=== PATIENT | male | born 1985 | race Caucasian/White ===

== ENCOUNTER 2018-08-16 17:17 | Emergency (ER) | payer BC, MEDICAID ==
[2018-08-16 17:46] VITALS: BP 134/77
[2018-08-16] MEDS ORDERED: Albuterol/Ipratropium 3.0-0.5 MG/3 ML Neb Soln NEB ONE (18:00)
[2018-08-16] MEDS ORDERED: predniSONE 20 MG Tab PO ONE (18:00)
--- NOTE | 2018-08-16 18:08 | EDM.PDOC ---
ED HPI GENERAL MEDICAL PROBLEM - General Chief Complaint: Respiratory Problem Stated Complaint: SHORTNESS OF BREATH Time Seen by Provider: 08/16/18 17:57 Source of Information: Reports: Patient History Limitations: Reports: No Limitations - History of Present Illness INITIAL COMMENTS - FREE TEXT/NARRATIVE: Patient is a 33-year-old gentleman who presents to the emergency department this afternoon with a complaint of cough and shortness of breath. Patient states that this is been on on for approximately 1 week, he does have a history of asthma, and is been taking home nebulizer treatments along with metered-dose inhaler. Symptoms have not resolved and have become worse. Patient denies fever, suspected contact with sick individuals, nausea, vomiting, diarrhea, or out of country travel. Onset: Gradual Duration: Day(s): Location: Reports: Chest Quality: Reports: Ache Severity: Mild Improves with: Reports: None Worsens with: Reports: Breathing Associated Symptoms: Reports: Cough, cough w sputum, Shortness of Breath. Denies: Chest Pain, Fever/Chills, Nausea/Vomiting Treatments SPORT INTERNSHIP: Reports: Home Treatments - Related Data Allergies Allergy/AdvReac Type Severity Reaction Status Date / Time amoxicillin Allergy Rash Verified 08/16/18 17:47 Home Meds: Home Meds Albuterol [Proventil HFA] 2 puff INH Q4H PRN 07/16/13 [History] Triamcinolone Acetonide [Triamcinolone Acetonide 0.1% Crm] 15 gm TOP BID PRN [History] Albuterol [Proventil HFA] 2 puff INH Q4H #1 inhaler 08/16/18 [Rx] Albuterol/Ipratropium [DuoNeb 3.0-0.5 MG/3 ML] 3 ml .XX QID #30 neb 08/16/18 [Rx ] Azithromycin [Zithromax] 500 mg PO DAILY #4 tab 08/16/18 [Rx] predniSONE [Prednisone] 20 mg PO DAILY #3 tablet 08/16/18 [Rx] Past Medical History HEENT History: Reports: None Cardiovascular History: Reports: None Respiratory History: Reports: Asthma Psychiatric History: Reports: None Dermatologic History: Reports: Other (See Below) Other Dermatologic History: hx dermatitis Social & Family History - Caffeine Use Caffeine Use: Reports: Soda, Tea ED ROS GENERAL - Review of Systems Review Of Systems: ROS reveals no pertinent complaints other than HPI. Constitutional: Reports: No Symptoms HEENT: Reports: No Symptoms Respiratory: Reports: Shortness of Breath, Cough, Sputum Cardiovascular: Reports: No Symptoms Endocrine: Reports: No Symptoms GI/Abdominal: Reports: No Symptoms : Reports: No Symptoms Musculoskeletal: Reports: No Symptoms Skin: Reports: No Symptoms Neurological: Reports: No Symptoms Psychiatric: Reports: No Symptoms Hematologic/Lymphatic: Reports: No Symptoms Immunologic: Reports: No Symptoms ED EXAM, GENERAL - Physical Exam Exam: See Below Exam Limited By: No Limitations General Appearance: Alert, WD/WN, No Apparent Distress Eye Exam: Bilateral Eye: Normal Inspection Nose: Normal Inspection, Normal Mucosa, No Blood Throat/Mouth: Normal Inspection, Normal Oropharynx, No Airway Compromise Head: Atraumatic, Normocephalic Neck: Normal Inspection, Supple, Non-Tender Respiratory/Chest: No Respiratory Distress, Wheezing (Mild end expiratory) Cardiovascular: Regular Rate, Rhythm, No Murmur GI/Abdominal: Normal Bowel Sounds, Soft, Non-Tender Neurological: Alert, Oriented, Normal Cognition Psychiatric: Normal Affect, Normal Mood Skin Exam: Warm, Dry, Intact, Normal Color, No Rash Lymphatic: No Adenopathy Course - Vital Signs Last Recorded V/S: Last Vital Signs Temp 98.2 F 08/16/18 17:30 Pulse 70 08/16/18 17:30 Resp 20 08/16/18 17:30 BP 134/77 08/16/18 17:30 Pulse Ox 94 L 08/16/18 17:30 - Orders/Labs/Meds Orders: Active Orders 24 hr Category Date Time Status CXR [Chest 2V] [CR] Stat Exams 08/16/18 17:46 Ordered INFLUENZA A+B AG SCREEN [RM] Stat Lab 08/16/18 17:46 Ordered - Radiology Interpretation Free Text/Narrative:: Chest x-ray shows no acute cardiopulmonary process - Re-Assessments/Exams Free Text/Narrative Re-Assessment/Exam: 08/16/18 18:30 Patient afebrile, appears nontoxic and feels much better, bilateral breath sounds are clear, sat 96%, patient given 30 mg Zithromax, 40 mg of prednisone and a DuoNeb in the ER. Influenza is negative. Departure - Departure Time of Disposition: 18:31 Disposition: Home, Self-Care 01 Condition: Good Clinical Impression: Exacerbation of asthma Qualifiers: Asthma severity: mild Asthma persistence: persistent Qualified Code(s): J45.31 - Mild persistent asthma with (acute) exacerbation Asthmatic bronchitis with acute exacerbation Qualifiers: Asthma severity: mild Asthma persistence: intermittent Qualified Code(s): J45.21 - Mild intermittent asthma with (acute) exacerbation - Discharge Information Instructions: Acute Bronchitis, Adult, [id number], How to Use a Nebulizer, Adult, Asthma, Adult, [id number], Metered Dose Inhaler (No Spacer Used) Referrals: Anthony Bello PA-C [Primary Care Provider] - Additional Instructions: Up at [facility] in 2 days. Return to emergency department sooner symptoms continue or worsen. Take medication as directed. - My Orders Last 24 Hours: My Active Orders 08/16/18 17:46 CXR [Chest 2V] [CR] Stat INFLUENZA A+B AG SCREEN [RM] Stat - Assessment/Plan Last 24 Hours: My Active Orders 08/16/18 17:46 CXR [Chest 2V] [CR] Stat INFLUENZA A+B AG SCREEN [RM] Stat Assessment:: Asthmatic bronchitis Plan: Follow-up with PCP in 2 days
--- NOTE | 2018-08-16 18:12 | CR ---
[id number] RAD/RAD Chest PA And Lateral EXAM: RAD Chest PA And Lateral CLINICAL DATA: COUGH. SHORTNESS OF BREATH COMPARISON: CORRELATION IS MADE WITH THE EXAM OF JULY 06, 2012. FINDINGS: The lungs are clear. The cardiomediastinal contour is normal. The regional bones and soft tissues are unremarkable. IMPRESSION: NO ACUTE PROCESS. Jose Valles MD 08/16/18 [id number] Thank you for allowing us to participate in the care of your patient.
[2018-08-16] MEDS ORDERED: Azithromycin 250 MG Tab PO ONE (18:26)
== END 2018-08-16 18:40 | disposition home or self-care (01) ==
LOC: KA.ED 17:17
DX: J45.31 Mild persistent asthma with (acute) exacerbation (principal); J45.909 Unspecified asthma, uncomplicated; F17.210 Nicotine dependence, cigarettes, uncomplicated; Z79.899 Other long term (current) drug therapy; Z88.1 Allergy status to other antibiotic agents
CPT/HCPCS: 71046; 87804; 94640; 99285; A9270; J7620-GY

== ENCOUNTER 2019-08-17 13:45 | Observation (INO) | payer BC, MEDICAID ==
[2019-08-17 14:34] LABS: ANION GAP 13.8 mmol/L (5-15); CHLORIDE,CL 98 mmol/L (98-115); SODIUM,NA 136 mmol/L (136-145)
[2019-08-17] MEDS ORDERED: Alum Hydrox/Mag Hydrox/Simeth 30 ML, Lidocaine 2% 15 ML PO ONE ×4 (16:32→17:00)
[2019-08-17] MEDS ORDERED: Sodium Chloride 0.9% 10 ML Syringe FLUSH PRN (20:00)
[2019-08-17] MEDS ORDERED: Formoterol/Mometasone 200-5 MCG 8.8 GM Inhaler IH SCH (21:00)
[2019-08-17] MEDS: Formoterol/Mometasone 200-5 MCG 8.8 GM Inhaler**OWN MED IH SCH (21:36)
[2019-08-17] MEDS: Sodium Chloride 0.9% 10 ML Syringe FLUSH SCH (21:38)
[2019-08-18] MEDS ORDERED: EPINEPHrine 1:10,000 1 MG/10 ML Syringe IVPUSH PRN (02:32)
[2019-08-18] MEDS ORDERED: Atropine 0.1 MG/ML 10 ML Syringe IVPUSH PRN (02:32)
[2019-08-18] MEDS ORDERED: Lidocaine 2% 100 MG/5 ML Syringe IVPUSH PRN (02:32)
[2019-08-18] MEDS ORDERED: Nitroglycerin 0.4 MG Tab.SL SL PRN (02:32)
[2019-08-18] MEDS ORDERED: Acetaminophen 325 MG Tab PO PRN (03:02)
[2019-08-18] MEDS: Sodium Chloride 0.9% 10 ML Syringe FLUSH SCH (09:12)
[2019-08-18] MEDS: Formoterol/Mometasone 200-5 MCG 8.8 GM Inhaler**OWN MED IH SCH (09:12)
--- NOTE | 2019-08-18 11:11 | PCM.DCSUM1 ---
Discharge Summary - Hospital Course Diagnosis: Stroke: No - Discharge Data Discharge Date: 08/18/19 Discharge Disposition: Home, Self-Care 01 Condition: Good - Referral to Home Health Primary Care Physician: Anthony Bello PA-C - Patient Instructions Diet: No Alcoholic Beverages Diet, Other: avoid irritating foods as discussed, Activity: As Tolerated Driving: May Drive Today Showering/Bathing: May Shower Notify Provider of: Increased Pain Other/Special Instructions: Limit alcohol, try to quit smoking,. Take your meds as directed. Take your new medication Singulair for Asthma May-October as discussed. We discussed life style modification that you can do to reduce your risk of heart problems such as quitting smoking, exercise, weight loss. - Discharge Plan *PRESCRIPTION DRUG MONITORING PROGRAM REVIEWED*: Not Applicable *COPY OF PRESCRIPTION DRUG MONITORING REPORT IN PATIENT JUAN MIGUEL: Not Applicable Prescriptions/Med Rec: Montelukast Sodium [Singulair] 10 mg PO DAILY #90 tablet Omeprazole 20 mg PO ACBREAKFAST #45 cap.sr Home Medications: Home Meds Triamcinolone Acetonide [Triamcinolone Acetonide 0.1% Crm] 15 gm TOP BID PRN [History] Albuterol [Proventil HFA] 2 puff INH Q4H #1 inhaler 08/16/18 [Rx] Albuterol/Ipratropium [DuoNeb 3.0-0.5 MG/3 ML] 3 ml INH Q6H PRN 08/17/19 [ History] Mometasone/Formoterol [Dulera 200-5 MCG] 2 puff PO BID 08/17/19 [History] Montelukast Sodium [Singulair] 10 mg PO DAILY #90 tablet 08/18/19 [Rx] Omeprazole 20 mg PO ACBREAKFAST #45 cap.sr 08/18/19 [Rx] Forms: Return to Work/Inpatient [facility]ON Referrals: Annabel Gonzales NP [Nurse Practitioner] - (or with anybody of his choice, early next week. ) - Discharge Summary/Plan Comment DC Time >30 min.: Yes Discharge Summary/Plan Comment: final diagnosis Acid reflux, with associated Gastritis EtOH abuse Tobacco dependency history summary Evan is a 34 year old male who Was admitted into overnight observatory status due to chest pain and rule out SC. He was seen by Annabel Gonzales NP from [facility] with sx suggestive of acid reflux with subjective heartburn with associated RUQ and LUQ abdominal discomfort. He took 6-8 TUMS with no improvement and notes TUMS is usually effective for him. Yesterday he denoted new sx of mid-sternal chest pain, without alarming SOB, diaphoresis, or nausea or radiating pains. Pertinent History Pain reproducible upon cough Smoker, light No cardiac hx, Ethoh: ~ 4-5 beers nightly and 2 mix drinks with whiskey, well over exceeding male limits. Last lipid panel in 2018: Cholesterol 223, Triglycerides-166, HDL-61, LDL-129. Gf: heart disease/ unknown age, Maternal uncle early heart disease/SC prehospital and hospital course -Chest x-ray done in clinic and normal. Lungs are clear, heart size normal. EKG in clinic: NSR 72. ST elevation in V2 and V3 (~1.5mm) though no significant reciprocal changes noted or other t-wave abnormality. Patient given SL Nitroglycerin in clinic with mild improvement in chest pain though no complete resolution of pain. ASA 324mg given in clinic. CBC, CMP, Magnesium all WNL, troponins trended all normal. Admitted provider consulted with Cardiogist, Dr. Sims who reviewed EKG and concurs with findings. Given continued chest pain and risk factors, Dr. Sims recommends repeat EKG now and repeat troponin in 4 hours. If negative troponin at follow-up ST elevation likely secondary to early repolarization and acute cardiac unlikely. repeat EKG in the hospital in equivocal Patient was also evaluated the day prior with c/o left side pain which started ~ 3-5 days prior. Patient denied any symptoms of fever, chills, nausea, vomiting, or diarrhea. he did note concerns of constipation. Assessment unremarkable in clinic with no abdominal pain elicited with palpation and normal bowel sounds. Abdomen notably rounded which patient states is normal. CBC, CMP, Lipase, and urinalysis all unremarkable. Abdominal x-ray obtained with nonobstructive bowel gas patterns. No air fluid levels or dilated loops of bowel. medication changes/adustments upon discharge Omeprazole, 20 mg by mouth daily 45 days (newly added) Singulair, 10 mg by May through October (newly added) patient education --Limit alcohol, --Smoking cessation --Wt reduction --Exercise --Take your meds as directed --Take your new medication Singulair for Asthma May-October as discussed. --Life style modification that you can do to reduce your risk of heart problems such as quitting smoking, exercise, weight loss. considerations at f/u --recommend avoiding stress testing due to risk of false positive with low risk patient with all indications of pretest probability of CAD negative --Could consider baseline ECHO to assess for cardiac myopathy since LVH on EKG. --ETOH counseling, jwell exceeding limits. - General Info Date of Service: 08/18/19 Functional Status: Reports: Pain Controlled, Tolerating Diet, Ambulating, Urinating. Denies: New Symptoms - Review of Systems General: Reports: No Symptoms HEENT: Reports: No Symptoms Pulmonary: Reports: No Symptoms Cardiovascular: Reports: Other (mode to grade epigastric type pain reproducible on cough) Gastrointestinal: Denies: Abdominal Pain, Diarrhea, Nausea Genitourinary: Reports: No Symptoms Musculoskeletal: Reports: Other (epigastric type pain) Skin: Reports: No Symptoms Neurological: Reports: No Symptoms - Patient Data Vitals - Most Recent: Last Vital Signs Temp 97.4 F 08/18/19 06:52 Pulse 75 08/18/19 06:52 Resp 16 08/18/19 06:52 BP 107/64 08/18/19 06:52 Pulse Ox 96 08/18/19 06:52 Weight - Most Recent: 179 lb 14.4 oz I&O - Last 24 hours: Intake & Output 08/17/19 08/18/19 08/18/19 22:59 06:59 14:59 Intake Total 300 0 Output Total 0 Balance 300 0 Lab Results - Last 24 hrs: Laboratory Results - last 24 hr 08/17/19 08/17/19 08/17/19 Range/Units 13:55 13:55 19:00 WBC 6.86 (5.00-10.00) 10^3/uL RBC 5.26 (4.50-6.00) 10^6/uL Hgb 16.2 (13.0-17.0) g/dL Hct 46.8 (40.0-52.0) % MCV 89.0 (82.0-92.0) fL MCH 30.8 (27.0-31.0) pg MCHC 34.6 (32.0-36.0) g/dL RDW 12.0 (11.5-14.5) % Plt Count 227 (150-400) 10^3/uL MPV 9.2 (7.4-10.4) fL Immature Gran % (Auto) 0.3 (0.0-5.0) % Neut % (Auto) 61.6 (50.0-70.0) % Lymph % (Auto) 24.8 (20.0-40.0) % [place] % (Auto) 9.0 H (2.0-8.0) % Eos % (Auto) 4.2 H (1.0-3.0) % Baso % (Auto) 0.1 (0.0-1.0) % Immature Gran # (Auto) 0.02 (0.00-0.50) 10^3/uL Neut # (Auto) 4.22 (2.50-7.00) 10^3/uL Lymph # (Auto) 1.70 (1.00-4.00) 10^3/uL [place] # (Auto) 0.62 (0.10-0.80) 10^3/uL Eos # (Auto) 0.29 (0.10-0.30) 10^3/uL Baso # (Auto) 0.01 (0.00-0.10) 10^3/uL Sodium 136 D (136-145) mmol/L Potassium 4.1 (3.3-5.3) mmol/L Chloride 98 (98-115) mmol/L Carbon Dioxide 28.3 (21.0-32.0) mmol/L Anion Gap 13.8 (5-15) mmol/L BUN 13 (6-25) mg/dL Creatinine 0.87 (0.51-1.17) mg/dL Est Cr Clr Drug Dosing TNP Estimated GFR (MDRD) > 60 mL/min Glucose 99 (75 - 99) mg/dL Calcium 9.3 (8.7-10.3) mg/dL Magnesium 1.8 (1.8-2.4) mg/dL Total Bilirubin 0.7 (0.2-1.0) mg/dL AST 33 (15-37) U/L ALT 61 (12-78) U/L Alkaline Phosphatase 76 (46-116) IU/L Troponin I < 0.04 < 0.04 (0.00-0.070) ng/mL Total Protein 7.4 (6.4-8.2) g/dL Albumin 4.04 (3.00-4.80) g/dL 08/18/19 Range/Units 07:04 WBC (5.00-10.00) 10^3/uL RBC (4.50-6.00) 10^6/uL Hgb (13.0-17.0) g/dL Hct (40.0-52.0) % MCV (82.0-92.0) fL MCH (27.0-31.0) pg MCHC (32.0-36.0) g/dL RDW (11.5-14.5) % Plt Count (150-400) 10^3/uL MPV (7.4-10.4) fL Immature Gran % (Auto) (0.0-5.0) % Neut % (Auto) (50.0-70.0) % Lymph % (Auto) (20.0-40.0) % [place] % (Auto) (2.0-8.0) % Eos % (Auto) (1.0-3.0) % Baso % (Auto) (0.0-1.0) % Immature Gran # (Auto) (0.00-0.50) 10^3/uL Neut # (Auto) (2.50-7.00) 10^3/uL Lymph # (Auto) (1.00-4.00) 10^3/uL [place] # (Auto) (0.10-0.80) 10^3/uL Eos # (Auto) (0.10-0.30) 10^3/uL Baso # (Auto) (0.00-0.10) 10^3/uL Sodium (136-145) mmol/L Potassium (3.3-5.3) mmol/L Chloride (98-115) mmol/L Carbon Dioxide (21.0-32.0) mmol/L Anion Gap (5-15) mmol/L BUN (6-25) mg/dL Creatinine (0.51-1.17) mg/dL Est Cr Clr Drug Dosing Estimated GFR (MDRD) mL/min Glucose (75 - 99) mg/dL Calcium (8.7-10.3) mg/dL Magnesium (1.8-2.4) mg/dL Total Bilirubin (0.2-1.0) mg/dL AST (15-37) U/L ALT (12-78) U/L Alkaline Phosphatase (46-116) IU/L Troponin I < 0.04 (0.00-0.070) ng/mL Total Protein (6.4-8.2) g/dL Albumin (3.00-4.80) g/dL Med Orders - Current: Current Medications Acetaminophen (Tylenol) 650 mg PO Q4H PRN PRN Reason: Pain Last Admin: 08/18/19 03:13 Dose: 650 mg Atropine Sulfate (Atropine 0.1 Mg/Ml) 0 mg IVPUSH ASDIRECTED PRN PRN Reason: Heart Epinephrine HCl (Epinephrine 1:10,000) 1 mg IVPUSH ASDIRECTED PRN PRN Reason: Heart Lidocaine HCl (Xylocaine 2%) 0 mg IVPUSH ASDIRECTED PRN PRN Reason: Heart Mometasone Furoate/Formoterol Fumar (Dulera 200-5 Mcg) 2 puff IH BID [facility] Last Admin: 08/18/19 09:12 Dose: 2 puff Nitroglycerin (Nitrostat) 0.4 mg SL ASDIRECTED PRN PRN Reason: Heart Sodium Chloride (Saline Flush) 10 ml FLUSH Q8HR [facility] Last Admin: 08/18/19 09:12 Dose: 10 ml Sodium Chloride (Saline Flush) 10 ml FLUSH Q8HR PRN PRN Reason: keep vein open Discontinued Medications Al Hydroxide/Mg Hydroxide 30 (ml/ Lidocaine HCl 15 ml) 0 ml PO ONETIME ONE Stop: 08/17/19 16:33 Last Admin: 08/17/19 17:07 Dose: 45 ml Al Hydroxide/Mg Hydroxide 30 (ml/ Lidocaine HCl 15 ml) 0 ml PO ONETIME ONE Stop: 08/17/19 17:01 Last Admin: 08/17/19 17:11 Dose: Not Given Mometasone Furoate/Formoterol Fumar (Dulera 200-5 Mcg) 2 puff IH BID MEHNAZ - Exam Quality Assessment: Denies: Supplemental Oxygen General: Reports: Alert, Oriented, Cooperative Neck: Reports: Supple Lungs: Reports: Clear to Auscultation, Normal Respiratory Effort Cardiovascular: Reports: Regular Rate, Regular Rhythm, Other (reproducible substernal epigastric pain. ). Denies: Irregular Rhythm, Bradycardia, Tachycardia, Murmurs GI/Abdominal Exam: Soft Extremities: No Pedal Edema Psy/Mental Status: Reports: Alert, Normal Affect, Normal Mood
[2019-08-18 12:12] VITALS: BP 119/79; PULSE 73
== END 2019-08-18 12:20 | disposition home or self-care (01) ==
LOC: KA.LAB 13:45 → KA.MS 15:20
PROVIDERS: ADMIT Nurse Practitioner Family; ATTEND Family Medicine
DX: K21.9 Gastro-esophageal reflux disease without esophagitis (principal); K29.70 Gastritis, unspecified, without bleeding; F10.19 Alcohol abuse with unspecified alcohol-induced disorder; F17.210 Nicotine dependence, cigarettes, uncomplicated; L30.0 Nummular dermatitis; J45.30 Mild persistent asthma, uncomplicated; E66.3 Overweight; Z88.0 Allergy status to penicillin; Z79.51 Long term (current) use of inhaled steroids; Z68.29 Body mass index [BMI] 29.0-29.9, adult
CPT/HCPCS: 36415; 80053; 83735; 84484; 85025; 93005; A9270-GY; G0378; G0379

== ENCOUNTER 2020-12-07 11:50 | Emergency (ER) | payer BC, MEDICAID ==
--- NOTE | 2020-12-07 12:03 | EDM.PDOC ---
ED HPI GENERAL MEDICAL PROBLEM - General Chief Complaint: General Stated Complaint: LEFT SIDE RIB PAIN Time Seen by Provider: 12/07/20 12:02 Source of Information: Reports: Patient History Limitations: Reports: No Limitations - History of Present Illness INITIAL COMMENTS - FREE TEXT/NARRATIVE: 35 YO WM PRESENTS TO ER COMPLAINING OF LEFT ANTERIOR RIB PAIN AFTER INJURY LAST NIGHT. PT REPORTS HE WAS WRESTLING WITH HIS DAUGHTER AND SHE ACCIDENTALLY KNEED HIM IN THE RIBS AND HE STATES HE HEARD A "POP". PT DENIES SHORTNESS OF BREATH. PT STATES HE DOESN'T HAVE PAIN UNLESS HE MOVES OR COUGHS. PT DENIES FEVER/CHILLS, NO CONGESTION OR RECENT ILLNESSES. PT DENIES DIAPHORESIS, DIZZINESS, NAUSEA/VOMITING OR RADIATING PAIN. Onset Date: 12/06/20 Duration: Day(s): (1) Location: Reports: Chest Quality: Reports: Ache Severity: Moderate Improves with: Reports: Rest Worsens with: Reports: Movement Associated Symptoms: Reports: No Other Symptoms Left Thoracic Pain Score (Numeric/FACES): 6 - Related Data Allergies Allergy/AdvReac Type Severity Reaction Status Date / Time amoxicillin Allergy Rash Verified 12/07/20 12:43 Home Meds: Home Meds Triamcinolone Acetonide [Triamcinolone Acetonide 0.1% Crm] 15 gm TOP BID PRN 12/09/15 [History] Albuterol [Proventil HFA] 2 puff INH Q4H #1 inhaler 08/16/18 [Rx] Albuterol/Ipratropium [DuoNeb 3.0-0.5 MG/3 ML] 3 ml INH Q6H PRN 08/17/19 [History] Mometasone/Formoterol [Dulera 200-5 MCG] 2 puff PO BID 08/17/19 [History] Montelukast Sodium [Singulair] 10 mg PO DAILY #90 tablet 08/18/19 [Rx] Omeprazole 20 mg PO ACBREAKFAST #45 cap.sr 08/18/19 [Rx] Past Medical History HEENT History: Reports: None Cardiovascular History: Reports: None Respiratory History: Reports: Asthma Gastrointestinal History: Reports: None Genitourinary History: Reports: None Musculoskeletal History: Reports: Back Pain, Chronic Neurological History: Reports: None Psychiatric History: Reports: None Endocrine/Metabolic History: Reports: None Hematologic History: Reports: None Immunologic History: Reports: None Oncologic (Cancer) History: Reports: None Dermatologic History: Reports: Other (See Below) Other Dermatologic History: hx dermatitis - Infectious Disease History Infectious Disease History: Reports: None - Past Surgical History Head Surgeries/Procedures: Reports: None GI Surgical History: Reports: None Male Surgical History: Reports: None Musculoskeletal Surgical History: Reports: None Social & Family History - Caffeine Use Caffeine Use: Reports: Soda ED ROS GENERAL - Review of Systems Review Of Systems: See Below Constitutional: Reports: No Symptoms HEENT: Reports: No Symptoms Respiratory: Denies: Shortness of Breath Cardiovascular: Reports: Chest Pain. Denies: Blood Pressure Problem, Dyspnea on Exertion, Lightheadedness, Orthopnea, Palpitations, Syncope Endocrine: Reports: No Symptoms GI/Abdominal: Reports: No Symptoms : Reports: No Symptoms Musculoskeletal: Reports: Other (ANTERIOR LOWER CHEST PAIN) Skin: Reports: No Symptoms Neurological: Reports: No Symptoms Psychiatric: Reports: No Symptoms Hematologic/Lymphatic: Reports: No Symptoms Immunologic: Reports: No Symptoms ED EXAM, GENERAL - Physical Exam Exam: See Below Exam Limited By: No Limitations General Appearance: Alert, WD/WN, No Apparent Distress Nose: Normal Inspection, Normal Mucosa, No Blood Throat/Mouth: Normal Inspection, Normal Lips, Normal Teeth, Normal Gums, Normal Oropharynx, Normal Voice, No Airway Compromise Head: Atraumatic, Normocephalic Neck: Normal Inspection, Supple, Non-Tender, Full Range of Motion Respiratory/Chest: No Respiratory Distress, Lungs Clear, Normal Breath Sounds, No Accessory Muscle Use, Chest Non-Tender Cardiovascular: Normal Peripheral Pulses, Regular Rate, Rhythm, No Edema, No Gallop, No JVD, No Murmur, No Rub GI/Abdominal: Normal Bowel Sounds, Soft, Non-Tender, No Organomegaly, No Distention, No Abnormal Bruit, No Mass Back Exam: Normal Inspection, Full Range of Motion, NT Extremities: Normal Inspection, Normal Range of Motion, Non-Tender, Normal Capillary Refill, No Pedal Edema Neurological: Alert, Oriented, CN II-XII Intact, Normal Cognition, Normal Gait, Normal Reflexes, No Motor/Sensory Deficits Psychiatric: Normal Affect, Normal Mood Skin Exam: Warm, Dry, Intact, Normal Color, No Rash Lymphatic: No Adenopathy Course - Vital Signs Last Recorded V/S: Last Vital Signs Temp 97.2 F 12/07/20 12:38 Pulse 75 12/07/20 12:38 Resp BP 119/66 12/07/20 12:38 Pulse Ox 98 12/07/20 12:38 - Orders/Labs/Meds Orders: Active Orders 24 hr Category Date Time Status Ribs 2V w Chest Lt [CR] Stat Exams 12/07/20 12:07 Ordered Meds: Medications Discontinued Medications Generic Name Dose Route Start Last Admin Trade Name Gilson PRN Reason Stop Dose Admin Ketorolac Tromethamine 60 mg 12/07/20 12:15 Ketorolac 60 Mg/2 Ml Sdv IM 12/07/20 12:16 ONETIME ONE Ketorolac Tromethamine Confirm 12/07/20 12:14 Ketorolac 60 Mg/2 Ml Sdv Administered 12/07/20 12:15 Dose 60 mg .ROUTE .STK-MED ONE - Radiology Interpretation Free Text/Narrative:: LEFT RIB SERIES- NO FX, NO PTX Departure - Departure Time of Disposition: 12:53 Disposition: Home, Self-Care 01 Condition: Good Clinical Impression: Contusion of rib on left side Qualifiers: Encounter type: initial encounter Qualified Code(s): S20.212A - Contusion of left front wall of thorax, initial encounter - Discharge Information Instructions: Rib Contusion Referrals: Annabel Gonzales CLINICAL AUDITOR [Primary Care Provider] - Forms: ED Department Discharge Additional Instructions: 1. DISCHARGE HOME 2. ULTRAM 50MG EVERY 4-6 HOURS NEEDED FOR PAIN 3. MOTRIN 600MG EVERY 6 HOURS X 5 DAYS 4. INCENTIVE SPIROMETRY- USE 10X/EVERY HOUR WHILE AWAKE 5. CONSIDER RIB BELT WHEN AMBULATING 6. ICE TO CHEST WALL 7. RETURN TO ER FOR WORSENING SYMPTOMS 8. FOLLOW UP WITH PCP FOR FURTHER TREATMENT NEEDED Sepsis Event Note (ED) - Focused Exam Vital Signs: Vital Signs Temp Pulse BP Pulse Ox 12/07/20 12:38 97.2 F 75 119/66 98 - My Orders Last 24 Hours: My Active Orders 12/07/20 12:07 Ribs 2V w Chest Lt [CR] Stat - Assessment/Plan Last 24 Hours: My Active Orders 12/07/20 12:07 Ribs 2V w Chest Lt [CR] Stat Assessment:: 1. LEFT SIDED RIB CONTUSION Plan: 1. DISCHARGE HOME 2. ULTRAM 50MG EVERY 4-6 HOURS NEEDED FOR PAIN 3. MOTRIN 600MG EVERY 6 HOURS X 5 DAYS 4. INCENTIVE SPIROMETRY- USE 10X/EVERY HOUR WHILE AWAKE 5. CONSIDER RIB BELT WHEN AMBULATING 6. ICE TO CHEST WALL 7. RETURN TO ER FOR WORSENING SYMPTOMS 8. FOLLOW UP WITH PCP FOR FURTHER TREATMENT NEEDED
[2020-12-07] MEDS: Ketorolac 60 MG/2 ML SDV IM ONE (12:30)
[2020-12-07 12:42] VITALS: BP 119/66; PULSE 75
[2020-12-07] MEDS: Ketorolac 60 MG/2 ML SDV ONE (12:51)
[2020-12-07] MEDS: traMADol 50 MG Tab PO ONE (13:15)
--- NOTE | 2020-12-07 14:11 | CR ---
[id number] RAD/RAD Ribs Left W PA Chest . Exam: RAD Ribs Left W PA Chest Clinical Data: CHEST PAIN COMPARISON: CORRELATION IS MADE WITH AUGUST 16, 2018 FINDINGS: No fracture is seen There is no pneumothorax The lungs are clear The cardiac silhouette is stable IMPRESSION: NEGATIVE EXAM Jose Valles MD 12/07/20 [id number] Thank you for allowing us to participate in the care of your patient.
== END 2020-12-07 13:00 | disposition home or self-care (01) ==
LOC: KA.ED 11:50
DX: S20.212A Contusion of left front wall of thorax, initial encounter (principal); J45.909 Unspecified asthma, uncomplicated; Z88.0 Allergy status to penicillin; Z79.899 Other long term (current) drug therapy; W50.0XXA Accidental hit or strike by another person, initial encounter; Y93.72 Activity, wrestling
CPT/HCPCS: 71101; 96372; 99283; J1885; A9270-GY

== ENCOUNTER 2021-06-01 11:43 | Emergency (ER) | payer BC, MEDICAID ==
[2021-06-01 11:58] VITALS: BP 114/78; PULSE 70
--- NOTE | 2021-06-01 12:05 | EDM.PDOC ---
ED HPI GENERAL MEDICAL PROBLEM - General Chief Complaint: General Stated Complaint: EAR PAIN Time Seen by Provider: 06/01/21 12:02 Source of Information: Reports: Patient History Limitations: Reports: No Limitations - History of Present Illness INITIAL COMMENTS - FREE TEXT/NARRATIVE: 35 YO WM PRESENTS TO ER COMPLAINING OF 4 DAY HISTORY OF RIGHT EAR PAIN. PT REPORTS NO RECENT URI SYMPTOMS. PT DENIES USE OF EAR PLUGS. PT STATES PAIN COMES AND GOES BUT HAS BECOME MORE FREQUENT RECENTLY. PT ALSO REPORTS HISTORY OF ALCOHOL USE/ABUSE AND GASTRITIS WHICH HE RECENTLY RECEIVED A PRESCRIPTION FOR PROTONIX WHEN LAST SEEN IN CLINIC. PT REPORTS HE DOESN'T THINK IT'S HELPING. PT DENIES NAUSEA/VOMITING, NO RECTAL BLEEDING. PT REPORTS PAIN COMES AND GOES AND IS BURING IN CHARACTER AND LOCATED EPIGASTRIC. PT REPORTS EATING AND DRINKING WELL. PT REPORTS HE IS COMFORTABLE FOLLOWING UP WITH PCP FOR FURTHER EVALUATION OUTPATIENT. PT INSTRUCTED TO RETURN TO ER IF ABDOMINAL PAIN GETS WORSE OR VOMITING, MELENA, RECTAL BLEEDING OCCUR. PT INSTRUCTED TO START PEPCID 20MG 2X/DAY AND SIMETHICONE 125MG NEEDED. Duration: Day(s): Location: Reports: Other (RIGHT EAR) Quality: Reports: Ache Severity: Mild Improves with: Reports: None Worsens with: Reports: None Associated Symptoms: Denies: Cough, Fever/Chills, Nausea/Vomiting, Shortness of Breath Abdominal Pain Score (Numeric/FACES): 5 Right Ear Pain Score (Numeric/FACES): 6 - Related Data Allergies Allergy/AdvReac Type Severity Reaction Status Date / Time amoxicillin Allergy Rash Verified 06/01/21 12:01 Home Meds: Home Meds Triamcinolone Acetonide [Triamcinolone Acetonide 0.1% Crm] 1 applic TOP BID PRN 12/09/15 [History] Mometasone/Formoterol [Dulera 200-5 MCG] 2 puff PO BID 08/17/19 [History] Albuterol [Proventil HFA] 2 puff INH Q4H PRN 06/01/21 [History] Omeprazole 20 mg PO DAILY 06/01/21 [History] predniSONE [Prednisone] 10 mg PO ASDIRECTED 06/01/21 [History] Past Medical History HEENT History: Reports: None Cardiovascular History: Reports: None Respiratory History: Reports: Asthma Gastrointestinal History: Reports: None Genitourinary History: Reports: None Musculoskeletal History: Reports: Back Pain, Chronic Neurological History: Reports: None Psychiatric History: Reports: None Endocrine/Metabolic History: Reports: None Hematologic History: Reports: None Immunologic History: Reports: None Oncologic (Cancer) History: Reports: None Dermatologic History: Reports: Other (See Below) Other Dermatologic History: hx dermatitis - Infectious Disease History Infectious Disease History: Reports: None - Past Surgical History Head Surgeries/Procedures: Reports: None GI Surgical History: Reports: None Male Surgical History: Reports: None Musculoskeletal Surgical History: Reports: None Social & Family History - Caffeine Use Caffeine Use: Reports: Coffee ED ROS GENERAL - Review of Systems Review Of Systems: See Below Constitutional: Reports: No Symptoms HEENT: Reports: Ear Pain Respiratory: Reports: No Symptoms Cardiovascular: Reports: No Symptoms Endocrine: Reports: No Symptoms GI/Abdominal: Reports: Abdominal Pain. Denies: Black Stool, Bloody Stool, Diarrhea, Decreased Appetite, Hematochezia, Melena, Nausea, Vomiting : Reports: No Symptoms Musculoskeletal: Reports: No Symptoms Skin: Reports: No Symptoms Neurological: Reports: No Symptoms Psychiatric: Reports: No Symptoms Hematologic/Lymphatic: Reports: No Symptoms Immunologic: Reports: No Symptoms ED EXAM, GENERAL - Physical Exam Exam: See Below Exam Limited By: No Limitations General Appearance: Alert, WD/WN, No Apparent Distress Ear Exam: Right Ear: Erythema, Left Ear: Canal Normal Head: Atraumatic, Normocephalic Neck: Normal Inspection, Supple, Non-Tender, Full Range of Motion Respiratory/Chest: No Respiratory Distress, Lungs Clear, Normal Breath Sounds, No Accessory Muscle Use, Chest Non-Tender Cardiovascular: Normal Peripheral Pulses, Regular Rate, Rhythm, No Edema, No Gallop, No JVD, No Murmur, No Rub GI/Abdominal: Normal Bowel Sounds, Soft, Non-Tender, No Organomegaly, No D istention, No Abnormal Bruit, No Mass. No: Tender Back Exam: Normal Inspection, Full Range of Motion, NT Extremities: Normal Inspection, Normal Range of Motion, Non-Tender, Normal Capillary Refill, No Pedal Edema Neurological: Alert, Oriented, CN II-XII Intact, Normal Cognition, Normal Gait, No Motor/Sensory Deficits Psychiatric: Normal Affect, Normal Mood Skin Exam: Warm, Dry, Intact, Normal Color, No Rash Course - Vital Signs Last Recorded V/S: Last Vital Signs Temp 98.1 F 06/01/21 11:53 Pulse 70 06/01/21 11:53 Resp 16 06/01/21 11:53 BP 114/78 06/01/21 11:53 Pulse Ox 98 06/01/21 11:53 Departure - Departure Time of Disposition: 12:31 Disposition: Home, Self-Care 01 Condition: Good Clinical Impression: Otitis externa Qualifiers: Chronicity: acute Laterality: right Gastritis Qualifiers: Gastritis type: alcoholic Chronicity: acute Gastritis bleeding: without bleeding Qualified Code(s): K29.20 - Alcoholic gastritis without bleeding - Discharge Information Instructions: Otitis Externa, Gastritis, Adult, [id number] Referrals: Kindra Mccord MD [Primary Care Provider] - Forms: ED Department Discharge, ED Return to Work/School Form Additional Instructions: 1. DISCHARGE HOME 2. CORTISPORIN OTIC- 3 DROPS TO RIGHT EAR WITH COTTON BALL 3X/DAY X 7 DAYS 3. CONTINUE HOME MEDICATIONS 4. CONSIDER PEPCID 20MG 2X/DAY AND SIMETHICONE 125MG NEEDED FOR ABDOMINAL PAIN 5. FOLLOW UP WITH PCP THIS WEEK FOR RECHECK AND FURTHER EVALUATION OF ABDOMINAL DISCOMFORT 6. RETURN TO ER FOR WORSENING SYMPTOMS 7. REFRAIN FROM ALCOHOL Sepsis Event Note (ED) - Evaluation Sepsis Screening Result: No Definite Risk - Focused Exam Vital Signs: Vital Signs Temp Pulse Resp BP Pulse Ox 06/01/21 11:53 98.1 F 70 16 114/78 98 - Assessment/Plan Assessment:: 1. RIGHT OTITIS EXTERNA 2. ALCOHOLIC GASTRITIS Plan: 1. DISCHARGE HOME 2. CORTISPORIN OTIC- 3 DROPS TO RIGHT EAR WITH COTTON BALL 3X/DAY X 7 DAYS 3. CONTINUE HOME MEDICATIONS 4. CONSIDER PEPCID 20MG 2X/DAY AND SIMETHICONE 125MG NEEDED FOR ABDOMINAL PAIN 5. FOLLOW UP WITH PCP THIS WEEK FOR RECHECK AND FURTHER EVALUATION OF ABDOMINAL DISCOMFORT 6. RETURN TO ER FOR WORSENING SYMPTOMS
[2021-06-01] MEDS: Hydrocortisone/Neomycin/Polymyxin B Otic Susp 10 ML Bottle EARRT ONE (12:46)
== END 2021-06-01 12:37 | disposition home or self-care (01) ==
LOC: KA.ED 11:43
DX: H60.91 Unspecified otitis externa, right ear (principal); K29.20 Alcoholic gastritis without bleeding; Z79.899 Other long term (current) drug therapy; Z88.0 Allergy status to penicillin
CPT/HCPCS: 99283; A9270-GY

== ENCOUNTER 2024-11-27 20:02 | Emergency (ER) | payer MEDICAID ==
[2024-11-27] MEDS ORDERED: Sodium Chloride 0.9% 10 ML Syringe FLUSH PRN (20:21)
[2024-11-27] MEDS: Ketorolac 30 MG/ML SDV IVPUSH ONE (20:25)
[2024-11-27 20:30] LABS: BASOPHILS ABSOLUTE AUTO 0.02 10^3/uL (0.00-0.10); BASOPHILS PERCENT AUTO 0.3 % (0.0-1.0); EOSINOPHILS ABSOLUTE AUTO 0.27 10^3/uL (0.10-0.30); EOSINOPHILS PERCENT AUTO 3.7 % (1.0-3.0); HEMATOCRIT 43.3 % (40.0-52.0); HEMOGLOBIN 14.5 g/dL (13.0-17.0); IMMATURE GRAN ABSOLUTE AUTO 0.01 10^3/uL (0.00-0.04); IMMATURE GRAN PERCENT AUTO 0.1 % (0.0-0.4); LYMPHOCYTES ABSOLUTE AUTO 2.08 10^3/uL (1.00-4.00); LYMPHOCYTES PERCENT AUTO 28.7 % (20.0-40.0); MEAN CORPUSCULAR HEMOGLOBIN 30.2 pg (27.0-31.0); MEAN CORPUSCULAR HGB CONC 33.5 g/dL (32.0-36.0); MEAN CORPUSCULAR VOLUME 90.2 fL (82.0-92.0); MEAN PLATELET VOLUME 9.1 fL (7.4-10.4); MONOCYTES ABSOLUTE AUTO 0.57 10^3/uL (0.10-0.80); MONOCYTES PERCENT AUTO 7.9 % (2.0-8.0); NEUTROPHILS ABSOLUTE AUTO 4.31 10^3/uL (2.50-7.00); NEUTROPHILS PERCENT AUTO 59.3 % (50.0-70.0); PLATELET COUNT,PLT 197 10^3/uL (150-400); WHITE BLOOD CELL COUNT,WBC 7.26 10^3/uL (5.00-10.00)
[2024-11-27 20:47] LABS: ALBUMIN 3.52 g/dL (3.40-5.00); ANION GAP 13.4 mmol/L (5-15); BILIRUBIN TOTAL 0.7 mg/dL (0.2-1.0); CALCIUM 9.1 mg/dL (8.7-10.3); CARBON DIOXIDE,CO2 26.4 mmol/L (21.0-32.0); CREATININE 0.88 mg/dL (0.51-1.17); EST CRCL DRUG DOSING (CG) 99.98 mL/min; POTASSIUM,K 3.8 mmol/L (3.5-5.1); PROTEIN TOTAL,TP 6.7 g/dL (6.4-8.2)
[2024-11-27] MEDS: Iopamidol 755 Mg/ML 100 ML Bottle IV ONE (21:15)
[2024-11-27] MEDS: Sodium Chloride 0.9% 100 ML IV SCH (21:15)
[2024-11-27 22:02] VITALS: BP 125/87; PULSE 62
== END 2024-11-27 21:55 | disposition home or self-care (01) ==
LOC: KA.ED 20:02
DX: R07.89 Other chest pain (principal); J45.909 Unspecified asthma, uncomplicated; Z88.0 Allergy status to penicillin; Z79.899 Other long term (current) drug therapy
CPT/HCPCS: 71101-RT; 71275; 80053; 84484; 85025; 85379; 93010; 96374; 99284; 99285-25; J1885; Q9967